=== PATIENT | female | born 1995 | race American Indian/Alaskan Native ===

== ENCOUNTER 2019-05-28 19:46 | Emergency (ER) | payer OTHER ==
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
[2019-05-28] MEDS ORDERED: HYDROcodone/ACETAMINOPHEN 5-325 MG TAB PO ONE (21:19)
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
[2019-05-28 22:37] VITALS: BP 126/84
== END 2019-05-28 22:30 | disposition home or self-care (01) ==
LOC: ED 19:46
DX: M94.0 Chondrocostal junction syndrome [Tietze] (principal); F17.200 Nicotine dependence, unspecified, uncomplicated; V89.2XXA Person injured in unspecified motor-vehicle accident, traffic, initial encounter; Y93.89 Activity, other specified; Y92.410 Unspecified street and highway as the place of occurrence of the external cause; Y99.8 Other external cause status
CPT/HCPCS: 71111

== ENCOUNTER 2019-09-06 15:45 | Emergency (ER) | payer OTHER ==
--- NOTE | 2019-09-06 15:53 | Event Note ---
ED Screening Note ED Screening Note: cough and sore throat no medical history 3-4 days works at [employer] coughing - wet in triage no known covid exposures no travel no cig/etoh/drugs rx none lmp last month- as she laughs b Cr on exam lungs This initial assessment/diagnostic orders/clinical plan/treatment(s) is/are subject to change based on patients health status, clinical progression and re- assessment by fellow clinical providers in the ED. Further treatment and workup at subsequent clinical providers discretion. Patient/guardian urged not to elope from the ED as their condition may be serious if not clinically assessed and managed. Initial orders include: xray rapid flu reexam ACC
--- NOTE | 2019-09-06 16:44 | Emergency Department Report ---
Minor Respiratory - HPI Chief Complaint: Upper Respiratory Infection Stated Complaint: COUGH/WHEEZING/RAPID CHEST Time Seen by Provider: 09/06/19 15:51 Duration: 2 Days Pain Location: Throat Severity: mild Minor Respiratory: Yes Sore Throat, Yes Able to Tolerate Fluids, Yes Cough, No Rhinorrhea, No Ear Pain, No Sick Contacts, No Hemoptysis, No Chest Pain, No Shortness of Breath, No Fever Other History: This is a 24-year-old female presents the ED with no prior medical history complaining of intermittent coughing and chest congestion for the past 3 to 4 days. Patient denies any fever, chills, nausea vomiting shortness of breath or any history of asthma. Patient does note that she has seasonal allergies. Patient states that she feels phlegm in her chest whenever she coughs. Patient states she wanted to be evaluated to make sure it was not anything else. patient has had no sick contact ED Review of Systems ROS: Stated complaint: COUGH/WHEEZING/RAPID CHEST Other details as noted in HPI Comment: All other systems reviewed and negative ED Past Medical Hx - Past Medical History Previous Medical History?: No - Surgical History Past Surgical History?: No - Social History Smoking Status: Never Smoker Substance Use Type: None - Medications Home Medications: Home Medications Medication Instructions Recorded Confirmed Last Taken Type Acetaminophen/Codeine [Tylenol 1 tab PO Q6H PRN #12 tab 05/28/19 Unknown Rx /Codeine # 3 tab] Cyclobenzaprine [Flexeril] 10 mg PO TID PRN #30 tablet 05/28/19 Unknown Rx Naproxen 500 mg PO BID PRN #30 tablet 05/28/19 Unknown Rx Minor Respiratory Exam - Exam General: Vital signs noted. No distress. Alert and acting appropriately. HEENT: Yes Moist Mucous Membranes, No Pharyngeal Erythema, No Pharyngeal E xudates, No Rhinorrhea, No Conjuctival Injection, No Frontal Tenderness, No Maxillary Tenderness Ear: Neither TM Bulge, Neither TM Erythema, Neither EAC Pain, Neither EAC Disc harge Neck: Yes Supple, No Adenopathy Lungs: Yes Good Air Exchange, No Wheezes, No Ronchi, No Stridor, No Cough, No Labored Respirations, No Retractions, No Use of Accessory Muscles, No Other Abnormal Lung Sounds Heart: Yes Regular, No Murmur Abdomen: Yes Normal Bowel Sounds, No Tenderness, No Peritoneal Signs Skin: No Rash, No Edema Neurologic: Alert and oriented, no deficits. Musculoskeletal: Unremarkable. ED Course Vital Signs 09/06/19 15:48 Temperature 98.3 F Pulse Rate 103 H Respiratory 18 Rate Blood Pressure 123/90 O2 Sat by Pulse 98 Oximetry ED Medical Decision Making - Radiology Data Radiology results: report reviewed CHEST 2 VIEWS INDICATION / CLINICAL INFORMATION: Cough and wheezing. COMPARISON: None available. FINDINGS: SUPPORT DEVICES: None. HEART / MEDIASTINUM: No significant abnormality. LUNGS / PLEURA: No significant pulmonary or pleural abnormality. No pneumothorax. ADDITIONAL FINDINGS: No significant additional findings. IMPRESSION: 1. No acute findings. Signer Name: Yony Freeman MD Signed: 09/06/2019 4:48 PM Workstation Name: [id number] Transcribed By: JOSSELYN Dictated By: Yony Freeman MD Electronically Authenticated By: Yony Freeman MD Signed Date/Time: 09/06/19 5727 - Medical Decision Making 24-year-old female presents with upper respiratory symptoms most likely secondary to allergiic sinusitis. no fever during the ED stay. Chest x-ray shows no acute findings. See report above Discussed findings with the patient Discussed with the patient about symptomatic relief with [id number] medications such as Flonase, Claritin and Mucinex. Discussed continue Tylenol and Motrin as needed for fever and pain. Discussed increase fluids and diet intake. Discussed rest much needed. Discussed daily vitamin C for immune booster. Discussed follow-up with primary care physician in 3-5 days. Patient verbally states she understands and will comply the following instructions and follow-up Vital signs stable. Patient is in no acute distress Critical care attestation.: If time is entered above; I have spent that time in minutes in the direct care of this critically ill patient, excluding procedure time. ED Disposition Clinical Impression: Allergic sinusitis, Sinusitis Disposition: - TO HOME OR SELFCARE Is pt being admited?: No Does the pt Need Aspirin: No Condition: Stable Instructions: Sinusitis (ED), Upper Respiratory Infection (ED) Additional Instructions: Make sure to follow up with the primary care physician as discussed. Take Mucinex as needed , Claritin or Benadryl for allergies and Robitussin for coughing. X-ray was normal in the ED today If you have any worsening symptoms or develop new symptoms please return to ED immediately. Referrals: PRIMARY CARE, [Primary Care Provider] - 3-5 Days [facility] [Outside] - 3-5 Days [facility] [Outside] - 3-5 Days Forms: Work/School Release Form(ED) Time of Disposition: 17:37
--- NOTE | 2019-09-06 16:52 | XRay Report ---
CHEST 2 VIEWS INDICATION / CLINICAL INFORMATION: Cough and wheezing. COMPARISON: None available. FINDINGS: SUPPORT DEVICES: None. HEART / MEDIASTINUM: No significant abnormality. LUNGS / PLEURA: No significant pulmonary or pleural abnormality. No pneumothorax. ADDITIONAL FINDINGS: No significant additional findings. IMPRESSION: 1. No acute findings. Signer Name: Yony Freeman MD Signed: 09/06/2019 4:48 PM Workstation Name: [id number]
[2019-09-06 17:52] VITALS: BP 121/84
== END 2019-09-06 17:51 | disposition home or self-care (01) ==
LOC: ED 15:45
DX: J30.9 Allergic rhinitis, unspecified (principal); Z79.899 Other long term (current) drug therapy
CPT/HCPCS: 71046